=== PATIENT | female | born 1995 | race Caucasian/White ===

== ENCOUNTER 2021-03-27 11:52 | Emergency (ER) | payer MEDICAID, OTHER ==
[~2021-03-27] VITALS: Ht 149.9 cm; Wt 70.3 kg
[2021-03-27 11:53] VITALS: BP 105/62
[2021-03-27] MEDS ORDERED: CEFTRIAXONE 1G VIAL IM ONE (12:30)
[2021-03-27] MEDS ORDERED: AZITHROMYCIN 250 MG TABLET PO ONE (12:30)
[2021-03-27] MEDS ORDERED: METRONIDAZOLE 500 MG TABLET PO ONE (12:30)
[2021-03-27 12:42] LABS: APPEARANCE,URINE Cloudy (CLEAR); BILIRUBIN,URINE Negative (NEGATIVE); COLOR,URINE Yellow (YELLOW); GLUCOSE, URINE (UA) Negative (NEGATIVE); KETONES,URINE Trace mg/dL (NEGATIVE); LEUKOCYTE ESTERASE ,URINE Negative (NEGATIVE); NITRATE,URINE Negative (NEGATIVE); OCCULT BLOOD,URINE Negative (NEGATIVE); PH,URINE 5.5 (5.0-8.0); PROTEIN,URINE Trace mg/dL (NEGATIVE)
[2021-03-27 12:43] LABS: BASOPHILS % (AUTO) 0.3 % (0.0-5.0); EOSINOPHILS % (AUTO) 1.9 % (0.0-8.0); HEMATOCRIT 35.6 % (36-48); LYMPHOCYTES % (AUTO) 14.7 % (21.0-51.0); MEAN CORPUSCULAR HEMOGLOBIN 26.4 pg (27.0-33.0); MEAN CORPUSCULAR HGB CONC 32.3 g/dL (32.0-36.0); MEAN CORPUSCULAR VOLUME 81.8 fL (79-99); MONOCYTES % (AUTO) 4.8 % (3.0-13.0); PLATELET COUNT (AUTO) 379 K/uL (130-400); RED BLOOD CELL COUNT(AUTO) 4.35 MIL/uL (4.00-5.50); RED CELL DISTRIBUTION WIDTH 13.8 % (11.0-15.5); WHITE BLOOD COUNT (AUTO) 6.8 K/uL (4.8-10.8)
[2021-03-27 12:55] LABS: RBC,URINE 0-1 /HPF (0-1); WBC,URINE 0-1 /HPF (0-1)
[2021-03-27] MEDS ORDERED: LIDOCAINE HCL-MPF 1% 2ML VIAL ONE (12:55)
[2021-03-27 12:56] LABS: CALCIUM OXALATE CRYSTALS,UR Moderate /LPF (None Seen)
[2021-03-27 12:56] LABS: CREATININE 0.8 mg/dL (0.5-1.5); POTASSIUM 3.7 mmol/L (3.5-5.1)
[2021-03-27 12:57] LABS: BACTERIA,URINE Moderate /HPF (None Seen)
[2021-03-27 13:01] LABS: ALBUMIN 3.9 g/dL (3.5-5.0); BILIRUBIN,TOTAL 0.5 mg/dL (0.2-1.0)
[2021-03-27] MEDS ORDERED: DOXY100C5 PO (13:47)
[2021-03-27 13:56] LABS: RAPID PLASMA REAGIN NONREACTIVE (NONREACTIVE)
[2021-03-28 08:15] LABS: HEPATITIS A ANTIBODY IGM Negative (Negative); HEPATITIS B CORE IGM Negative (Negative); HEPATITIS Bs ANTIGEN SCREEN P Negative (Negative)
== END 2021-03-27 13:56 | disposition home or self-care (01) ==
LOC: EDH 11:52 → EEVIPCON 11:52 → EDH 13:56
DX: A54.9 Gonococcal infection, unspecified (principal); Z20.2 Contact with and (suspected) exposure to infections with a predominantly sexual mode of transmission
CPT/HCPCS: 36415; 80053; 80074; 81001; 81025; 85025; 86592; 86701; 87088; 87210; 87390; 87486; 87797; 96372; 99283; J0696; J3490

== ENCOUNTER 2021-05-01 11:29 | Emergency (ER) | payer OTHER ==
[~2021-05-01] VITALS: Ht 149.9 cm; Wt 68.9 kg
[~2021-05-01 11:29] MED LIST: DOXY100C5 PO
[2021-05-01 11:31] VITALS: BP 102/62
== END 2021-05-01 11:46 | disposition left against medical advice (07) ==
LOC: EDH 11:29
DX: R07.89 Other chest pain (principal); Z53.21 Procedure and treatment not carried out due to patient leaving prior to being seen by health care provider
CPT/HCPCS: 93005

== ENCOUNTER 2021-11-13 02:56 | Emergency (ER) | payer MEDICAID ==
[~2021-11-13] VITALS: Ht 149.9 cm; Wt 63.0 kg
[2021-11-13] MEDS ORDERED: HYDROXYZINE 100MG/2ML VIAL IM SCH (03:30)
[2021-11-13] MEDS ORDERED: DiphenhydrAMINE HCL 50 MG/ML VIAL ONE (03:46)
[2021-11-13 04:00] VITALS: BP 124/74
== END 2021-11-13 04:21 | disposition home or self-care (01) ==
LOC: EDH 02:56
DX: F41.1 Generalized anxiety disorder (principal); T43.225A Adverse effect of selective serotonin reuptake inhibitors, initial encounter; Y92.89 Other specified places as the place of occurrence of the external cause
CPT/HCPCS: 99283; 96372; J1200; J3410

== ENCOUNTER 2021-12-09 04:56 | Emergency (ER) | payer MEDICAID ==
[~2021-12-09] VITALS: Ht 149.9 cm; Wt 64.4 kg
[2021-12-09 05:18] VITALS: BP 110/68
[2021-12-09] MEDS ORDERED: HYD25 PO (05:37)
[2021-12-09 05:43] LABS: APPEARANCE,URINE CLEAR (CLEAR); BILIRUBIN,URINE NEGATIVE (NEGATIVE); COLOR,URINE YELLOW (YELLOW); GLUCOSE, URINE (UA) NEGATIVE (NEGATIVE); KETONES,URINE NEGATIVE (NEGATIVE); LEUKOCYTE ESTERASE ,URINE NEGATIVE (NEGATIVE); NITRATE,URINE NEGATIVE (NEGATIVE); OCCULT BLOOD,URINE NEGATIVE (NEGATIVE); PROTEIN,URINE NEGATIVE (NEGATIVE); UROBILINOGEN,URINE 0.2 mg/dL (0.2-1.0)
[2021-12-09 05:45] LABS: HCG,QUALITATIVE URINE NEGATIVE (NEGATIVE)
[2021-12-09 05:49] LABS: AMPHET/METH SCREEN,URINE NEGATIVE (NEGATIVE); BARBITURATE SCREEN, URINE NEGATIVE (NEGATIVE); BENZODIAZEPINES SCREEN,URINE NEGATIVE (NEGATIVE); CANNABINOID SCREEN,URINE NEGATIVE (NEGATIVE); COCAINE SCREEN,URINE NEGATIVE (NEGATIVE); PHENCYCLIDINE SCREEN,URINE NEGATIVE (NEGATIVE)
[2021-12-09] MEDS ORDERED: DIAZEPAM 5 MG/ML 2 ML SYG IM ONE (06:00)
== END 2021-12-09 06:11 | disposition home or self-care (01) ==
LOC: EDH 04:56
DX: F41.9 Anxiety disorder, unspecified (principal); T43.225A Adverse effect of selective serotonin reuptake inhibitors, initial encounter; F17.200 Nicotine dependence, unspecified, uncomplicated; Y92.89 Other specified places as the place of occurrence of the external cause
CPT/HCPCS: 99284; 80305; 81025; 96372; 93005; 81003; J3360

== ENCOUNTER 2022-01-05 04:48 | Emergency (ER) | payer MEDICAID ==
[~2022-01-05] VITALS: Ht 149.9 cm; Wt 62.1 kg
[~2022-01-05 04:48] MED LIST changes: +HYD25 PO
[2022-01-05 05:50] LABS: BASOPHILS % (AUTO) 0.5 % (0.0-5.0); HEMATOCRIT 34.7 % (36-48); LYMPHOCYTES % (AUTO) 28.5 % (21.0-51.0); MEAN CORPUSCULAR HGB CONC 32.9 g/dL (32.0-36.0); MEAN CORPUSCULAR VOLUME 79.2 fL (79-99); MONOCYTES % (AUTO) 7.9 % (3.0-13.0); NEUTROPHILS % (AUTO) 60.8 % (40.0-77.0); PLATELET COUNT (AUTO) 345 K/uL (130-400); RED BLOOD CELL COUNT(AUTO) 4.38 MIL/uL (4.00-5.50); RED CELL DISTRIBUTION WIDTH 14.8 % (11.0-15.5); WHITE BLOOD COUNT (AUTO) 10.4 K/uL (4.8-10.8)
[2022-01-05 06:00] LABS: CREATININE 0.8 mg/dL (0.5-1.5); POTASSIUM 3.5 mmol/L (3.5-5.1)
[2022-01-05 06:01] LABS: APPEARANCE,URINE CLEAR (CLEAR); BILIRUBIN,URINE NEGATIVE (NEGATIVE); GLUCOSE, URINE (UA) NEGATIVE (NEGATIVE); KETONES,URINE NEGATIVE (NEGATIVE); LEUKOCYTE ESTERASE ,URINE NEGATIVE Leu/uL (NEGATIVE); NITRATE,URINE NEGATIVE (NEGATIVE); OCCULT BLOOD,URINE NEGATIVE (NEGATIVE); PH,URINE 5.5 (5.0-8.0); PROTEIN,URINE NEGATIVE (NEGATIVE); UROBILINOGEN,URINE 0.2 mg/dL (0.2-1.0)
[2022-01-05 06:05] LABS: TOTAL PROTEIN, SERUM 8.2 g/dL (6.0-8.3)
[2022-01-05 06:07] VITALS: BP 101/67
[2022-01-05 06:07] LABS: HCG,QUALITATIVE URINE NEGATIVE (NEGATIVE)
[2022-01-05 06:08] LABS: COLOR,URINE LIGHT-YELLOW (YELLOW)
[2022-01-05 06:22] LABS: B-TYPE NATRIURETIC PEPTIDE < 5 pg/mL (0-100)
== END 2022-01-05 06:06 | disposition left against medical advice (07) ==
LOC: EDH 04:48
DX: R07.89 Other chest pain (principal); F41.9 Anxiety disorder, unspecified; F17.210 Nicotine dependence, cigarettes, uncomplicated; Z79.899 Other long term (current) drug therapy
CPT/HCPCS: 36415; 80053; 81003; 81025; 82550; 83880; 84484; 85025; 85378; 93005

== ENCOUNTER 2022-02-01 13:58 | Emergency (ER) | payer MEDICAID ==
[~2022-02-01] VITALS: Ht 149.9 cm; Wt 60.8 kg
[2022-02-01 13:59] VITALS: BP 107/67
[2022-02-01] MEDS ORDERED: ACET-2247 PO (14:12)
[2022-02-01] MEDS ORDERED: CORTSOL AD (14:12)
[2022-02-01] MEDS ORDERED: ACETAMINOPHEN 500 MG TABLET PO ONE (14:30)
== END 2022-02-01 14:26 | disposition home or self-care (01) ==
LOC: EDH 13:58
DX: H92.01 Otalgia, right ear (principal); F41.9 Anxiety disorder, unspecified; Z79.899 Other long term (current) drug therapy
CPT/HCPCS: 99282

== ENCOUNTER 2022-03-10 17:00 | Emergency (ER) | payer MEDICAID ==
[~2022-03-10] VITALS: Ht 149.9 cm; Wt 59.0 kg
[~2022-03-10 17:00] MED LIST changes: +ACET-2247 PO; +CORTSOL AD
[2022-03-10] MEDS ORDERED: PHARMACY COMMUNICATION MISC STA (17:25)
[2022-03-10] MEDS ORDERED: DEXAMETHASONE SOD PHOSPHATE 4 MG/ML 1ML VIAL IV ONE (17:30)
[2022-03-10] MEDS ORDERED: METOCLOPRAMIDE 10 MG/2 ML VIAL IVP ONE (17:30)
[2022-03-10 17:46] LABS: BASOPHILS % (AUTO) 0.3 % (0.0-5.0); EOSINOPHILS % (AUTO) 0.8 % (0.0-8.0); HEMATOCRIT 36.1 % (36-48); MEAN CORPUSCULAR HEMOGLOBIN 25.7 pg (27.0-33.0); MEAN CORPUSCULAR HGB CONC 32.7 g/dL (32.0-36.0); MEAN CORPUSCULAR VOLUME 78.5 fL (79-99); MONOCYTES % (AUTO) 5.2 % (3.0-13.0); NEUTROPHILS % (AUTO) 80.4 % (40.0-77.0); PLATELET COUNT (AUTO) 318 K/uL (130-400); RED CELL DISTRIBUTION WIDTH 14.6 % (11.0-15.5); WHITE BLOOD COUNT (AUTO) 7.8 K/uL (4.8-10.8)
[2022-03-10 17:56] LABS: CREATININE 0.7 mg/dL (0.5-1.5); POTASSIUM 3.7 mmol/L (3.5-5.1)
[2022-03-10] MEDS ORDERED: VALPROIC ACID (AS SODIUM SALT) 500 MG in 0.9%NACL 100ML 100 ML IV SCH (18:00)
[2022-03-10 18:01] LABS: ALBUMIN 3.9 g/dL (3.5-5.0); TOTAL PROTEIN, SERUM 8.2 g/dL (6.0-8.3)
[2022-03-10 19:15] VITALS: BP 106/62
[2022-03-10] MEDS: DiphenhydrAMINE HCL 50 MG/ML VIAL ONE ×2 (19:15→19:20)
[2022-03-10] MEDS ORDERED: CETI1TAB PO (20:31)
== END 2022-03-10 20:49 | disposition home or self-care (01) ==
LOC: EDH 17:00
DX: R51.9 Headache, unspecified (principal); F41.9 Anxiety disorder, unspecified; F43.10 Post-traumatic stress disorder, unspecified; F17.290 Nicotine dependence, other tobacco product, uncomplicated; M26.69 Other specified disorders of temporomandibular joint
CPT/HCPCS: 99284; 70450; 96365; 96375; 80053; 85025; 81025; 36415; 70486; J1100; J1200; J2765

== ENCOUNTER 2022-04-08 23:57 | Emergency (ER) | payer MEDICAID ==
[~2022-04-08] VITALS: Ht 149.9 cm; Wt 56.7 kg
[~2022-04-08 23:57] MED LIST changes: +CETI1TAB PO
[2022-04-09 00:40] LABS: BASOPHILS % (AUTO) 0.4 % (0.0-5.0); EOSINOPHILS % (AUTO) 2.8 % (0.0-8.0); HEMATOCRIT 31.5 % (36-48); LYMPHOCYTES % (AUTO) 38.5 % (21.0-51.0); MEAN CORPUSCULAR HEMOGLOBIN 25.7 pg (27.0-33.0); MEAN CORPUSCULAR VOLUME 77.8 fL (79-99); MONOCYTES % (AUTO) 8.7 % (3.0-13.0); NEUTROPHILS % (AUTO) 49.5 % (40.0-77.0); PLATELET COUNT (AUTO) 342 K/uL (130-400); RED BLOOD CELL COUNT(AUTO) 4.05 MIL/uL (4.00-5.50); RED CELL DISTRIBUTION WIDTH 15.1 % (11.0-15.5); WHITE BLOOD COUNT (AUTO) 8.6 K/uL (4.8-10.8)
[2022-04-09 01:00] LABS: CREATININE 0.7 mg/dL (0.5-1.5); POTASSIUM 4.1 mmol/L (3.5-5.1)
[2022-04-09 01:05] LABS: ALBUMIN 3.6 g/dL (3.5-5.0); TOTAL PROTEIN, SERUM 7.2 g/dL (6.0-8.3)
[2022-04-09 01:51] LABS: INR 1.01 (0.85-1.15)
[2022-04-09 01:52] LABS: PARTIAL THROMBOPLASTIN TIME 35.6 SEC (26.3-35.5)
[2022-04-09 02:26] LABS: BILIRUBIN,URINE NEGATIVE (NEGATIVE); COLOR,URINE COLORLESS (YELLOW); GLUCOSE, URINE (UA) NEGATIVE (NEGATIVE); KETONES,URINE NEGATIVE (NEGATIVE); LEUKOCYTE ESTERASE ,URINE 500 Leu/uL (NEGATIVE); NITRATE,URINE NEGATIVE (NEGATIVE); OCCULT BLOOD,URINE NEGATIVE (NEGATIVE); PH,URINE 5.5 (5.0-8.0); PROTEIN,URINE NEGATIVE (NEGATIVE); UROBILINOGEN,URINE 0.2 mg/dL (0.2-1.0)
[2022-04-09 02:28] LABS: APPEARANCE,URINE SLIGHTLY CLOUDY (CLEAR)
[2022-04-09 02:29] LABS: BACTERIA,URINE RARE /HPF (None Seen); MUCUS,URINE RARE LPF (None Seen); SQUAMOUS EPITHELIAL CELL,UR MOD /HPF (0-2)
[2022-04-09] MEDS ORDERED: OMEP40CA21 PO (03:20)
[2022-04-09 03:25] VITALS: BP 115/68
== END 2022-04-09 03:36 | disposition home or self-care (01) ==
LOC: EDH 23:57
DX: R07.89 Other chest pain (principal); I25.2 Old myocardial infarction; F17.200 Nicotine dependence, unspecified, uncomplicated; Z88.6 Allergy status to analgesic agent; Z79.899 Other long term (current) drug therapy
CPT/HCPCS: 36415; 71045; 80053; 81001; 84484; 84703; 85025; 85378; 85610; 85730; 87088; 93005

== ENCOUNTER 2022-04-30 12:25 | Emergency (ER) | payer MEDICAID ==
[~2022-04-30] VITALS: Ht 149.9 cm; Wt 59.0 kg
[~2022-04-30 12:25] MED LIST changes: -CORTSOL AD; -DOXY100C5 PO; -HYD25 PO; +OMEP40CA21 PO
[2022-04-30 13:41] LABS: BASOPHILS % (AUTO) 0.6 % (0.0-5.0); EOSINOPHILS % (AUTO) 1.9 % (0.0-8.0); HEMATOCRIT 33.3 % (36-48); LYMPHOCYTES % (AUTO) 33.3 % (21.0-51.0); MEAN CORPUSCULAR HEMOGLOBIN 25.5 pg (27.0-33.0); MEAN CORPUSCULAR HGB CONC 32.1 g/dL (32.0-36.0); MEAN CORPUSCULAR VOLUME 79.5 fL (79-99); MONOCYTES % (AUTO) 5.3 % (3.0-13.0); NEUTROPHILS % (AUTO) 58.5 % (40.0-77.0); PLATELET COUNT (AUTO) 402 K/uL (130-400); RED BLOOD CELL COUNT(AUTO) 4.19 MIL/uL (4.00-5.50)
[2022-04-30 13:50] LABS: APPEARANCE,URINE CLEAR (CLEAR); BILIRUBIN,URINE NEGATIVE (NEGATIVE); COLOR,URINE LIGHT-YELLOW (YELLOW); GLUCOSE, URINE (UA) NEGATIVE (NEGATIVE); HCG,QUALITATIVE URINE NEGATIVE (NEGATIVE); KETONES,URINE NEGATIVE (NEGATIVE); LEUKOCYTE ESTERASE ,URINE NEGATIVE Leu/uL (NEGATIVE); NITRATE,URINE NEGATIVE (NEGATIVE); OCCULT BLOOD,URINE NEGATIVE (NEGATIVE); PROTEIN,URINE NEGATIVE (NEGATIVE); UROBILINOGEN,URINE 0.2 mg/dL (0.2-1.0)
[2022-04-30 13:59] LABS: CREATININE 0.7 mg/dL (0.5-1.5); POTASSIUM 4.1 mmol/L (3.5-5.1)
[2022-04-30 14:06] LABS: TOTAL PROTEIN, SERUM 8.4 g/dL (6.0-8.3)
[2022-04-30] MEDS ORDERED: FAMOTIDINE 20MG VIAL IV ONE (14:30)
[2022-04-30] MEDS ORDERED: 0.9%NACL 1000ML 1,000 ML IV ONE (14:30)
[2022-04-30] MEDS ORDERED: LIDOCAINE HCL 2% VISCOUS 15 ML UDCUP PO ONE (16:00)
[2022-04-30] MEDS ORDERED: MAG/ALUM/SIMETH 30 ML UDCUP PO ONE (16:00)
[2022-04-30 16:15] VITALS: BP 116/68
== END 2022-04-30 16:26 | disposition home or self-care (01) ==
LOC: EDH 12:25
DX: R55 Syncope and collapse (principal); Z20.822 Contact with and (suspected) exposure to COVID-19; K64.4 Residual hemorrhoidal skin tags; K21.9 Gastro-esophageal reflux disease without esophagitis; Z88.8 Allergy status to other drugs, medicaments and biological substances; Z79.899 Other long term (current) drug therapy
CPT/HCPCS: 99285; 96374; 71045; 87635; 96361; 82270; 84484; 80053; 85025; 87804 ×2; 81003; 81025; 36415; 93005; C9803; J7030; S0028; J3490

== ENCOUNTER 2022-05-04 01:04 | Emergency (ER) | payer MEDICAID ==
[~2022-05-04] VITALS: Ht 152.4 cm; Wt 59.0 kg
[2022-05-04 02:38] LABS: BASOPHILS % (AUTO) 0.4 % (0.0-5.0); EOSINOPHILS % (AUTO) 1.6 % (0.0-8.0); HEMATOCRIT 36.1 % (36-48); LYMPHOCYTES % (AUTO) 27.9 % (21.0-51.0); MEAN CORPUSCULAR HEMOGLOBIN 25.5 pg (27.0-33.0); MEAN CORPUSCULAR HGB CONC 32.4 g/dL (32.0-36.0); MEAN CORPUSCULAR VOLUME 78.6 fL (79-99); MONOCYTES % (AUTO) 6.2 % (3.0-13.0); NEUTROPHILS % (AUTO) 63.6 % (40.0-77.0); PLATELET COUNT (AUTO) 509 K/uL (130-400); RED BLOOD CELL COUNT(AUTO) 4.59 MIL/uL (4.00-5.50); RED CELL DISTRIBUTION WIDTH 16.7 % (11.0-15.5); WHITE BLOOD COUNT (AUTO) 11.3 K/uL (4.8-10.8)
[2022-05-04 02:49] LABS: APPEARANCE,URINE CLEAR (CLEAR); BILIRUBIN,URINE NEGATIVE (NEGATIVE); COLOR,URINE COLORLESS (YELLOW); GLUCOSE, URINE (UA) NEGATIVE (NEGATIVE); KETONES,URINE NEGATIVE (NEGATIVE); LEUKOCYTE ESTERASE ,URINE 75 Leu/uL (NEGATIVE); NITRATE,URINE NEGATIVE (NEGATIVE); OCCULT BLOOD,URINE NEGATIVE (NEGATIVE); PH,URINE 6.5 (5.0-8.0); PROTEIN,URINE NEGATIVE (NEGATIVE); UROBILINOGEN,URINE 0.2 mg/dL (0.2-1.0)
[2022-05-04 02:51] LABS: HCG,QUALITATIVE URINE NEGATIVE (NEGATIVE)
[2022-05-04 02:53] LABS: RBC,URINE 0-1 /HPF (0-1); SQUAMOUS EPITHELIAL CELL,UR RARE /HPF (0-2); WBC,URINE 0-1 /HPF (0-1)
[2022-05-04 02:55] LABS: CREATININE 0.7 mg/dL (0.5-1.5); POTASSIUM 3.7 mmol/L (3.5-5.1)
[2022-05-04 03:00] LABS: ALBUMIN 4.2 g/dL (3.5-5.0)
[2022-05-04 04:06] VITALS: BP 98/51
== END 2022-05-04 04:33 | disposition home or self-care (01) ==
LOC: EDH 01:04
DX: I95.9 Hypotension, unspecified (principal); E27.1 Primary adrenocortical insufficiency; Z98.890 Other specified postprocedural states; Z88.8 Allergy status to other drugs, medicaments and biological substances
CPT/HCPCS: 36415; 80053; 81001; 81025; 85025; 87088; 93005

== ENCOUNTER 2022-08-18 15:51 | Emergency (ER) | payer MEDICAID ==
[~2022-08-18] VITALS: Ht 149.9 cm; Wt 65.8 kg
[2022-08-18] MEDS ORDERED: IPRATROPIUM/ALBUTEROL SULFATE 3 ML SOLUTION IH ONE ×2 (16:47→17:00)
[2022-08-18] MEDS ORDERED: ONDANSETRON 4MG INJ IVP ONE (17:00)
[2022-08-18] MEDS ORDERED: DEXAMETHASONE SOD PHOSPHATE 4 MG/ML 1ML VIAL IVP ONE (17:00)
[2022-08-18] MEDS ORDERED: 0.9%NACL 1000ML 1,000 ML IV ONE (17:00)
[2022-08-18 17:39] LABS: BASOPHILS % (AUTO) 0.2 % (0.0-5.0); EOSINOPHILS % (AUTO) 0.1 % (0.0-8.0); LYMPHOCYTES % (AUTO) 6.4 % (21.0-51.0); MEAN CORPUSCULAR HEMOGLOBIN 26.7 pg (27.0-33.0); MEAN CORPUSCULAR HGB CONC 33.3 g/dL (32.0-36.0); MEAN CORPUSCULAR VOLUME 80.1 fL (79-99); MONOCYTES % (AUTO) 4.3 % (3.0-13.0); NEUTROPHILS % (AUTO) 88.7 % (40.0-77.0); PLATELET COUNT (AUTO) 289 K/uL (130-400); RED BLOOD CELL COUNT(AUTO) 4.87 MIL/uL (4.00-5.50); RED CELL DISTRIBUTION WIDTH 14.5 % (11.0-15.5); WHITE BLOOD COUNT (AUTO) 14.6 K/uL (4.8-10.8)
[2022-08-18 17:55] LABS: CREATININE 0.7 mg/dL (0.5-1.5); POTASSIUM 3.5 mmol/L (3.5-5.1)
[2022-08-18] MEDS ORDERED: ACETAMINOPHEN 500 MG TABLET PO ONE (18:00)
[2022-08-18 18:05] LABS: ALBUMIN 4.4 g/dL (3.5-5.0); TOTAL PROTEIN, SERUM 8.8 g/dL (6.0-8.3)
[2022-08-18] MEDS ORDERED: AMOX500C2 PO (18:49)
[2022-08-18] MEDS ORDERED: CEFTRIAXONE 1G VIAL IV ONE (19:00)
[2022-08-18 19:38] VITALS: BP 114/63
== END 2022-08-18 19:39 | disposition home or self-care (01) ==
LOC: EDH 15:51
DX: J02.0 Streptococcal pharyngitis (principal); K21.9 Gastro-esophageal reflux disease without esophagitis; Z20.822 Contact with and (suspected) exposure to COVID-19
CPT/HCPCS: 99284; 96374; 71045; 96361; 96375; 87635; 80053; 84702; 85025; 87880; 87804 ×2; 83605; 36415; 94640; J1100; C9803; J7030; J0696; J2405

== ENCOUNTER 2022-09-18 03:30 | Emergency (ER) | payer MEDICAID ==
[~2022-09-18] VITALS: Ht 149.9 cm; Wt 66.2 kg
[~2022-09-18 03:30] MED LIST changes: +AMOX500C2 PO
[2022-09-18] MEDS ORDERED: IPRATROPIUM/ALBUTEROL SULFATE 3 ML SOLUTION IH ONE (06:00)
[2022-09-18] MEDS ORDERED: SOLU-MEDROL 125MG VIAL IVP ONE (06:00)
[2022-09-18 06:33] LABS: BASOPHILS % (AUTO) 0.4 % (0.0-5.0); EOSINOPHILS % (AUTO) 4.2 % (0.0-8.0); HEMATOCRIT 35.5 % (36-48); LYMPHOCYTES % (AUTO) 35.5 % (21.0-51.0); MEAN CORPUSCULAR HEMOGLOBIN 27.7 pg (27.0-33.0); MEAN CORPUSCULAR HGB CONC 33.8 g/dL (32.0-36.0); MONOCYTES % (AUTO) 8.9 % (3.0-13.0); NEUTROPHILS % (AUTO) 50.9 % (40.0-77.0); PLATELET COUNT (AUTO) 299 K/uL (130-400); RED BLOOD CELL COUNT(AUTO) 4.33 MIL/uL (4.00-5.50); RED CELL DISTRIBUTION WIDTH 14.6 % (11.0-15.5); WHITE BLOOD COUNT (AUTO) 7.7 K/uL (4.8-10.8)
[2022-09-18] MEDS ORDERED: SOLU-MEDROL 40MG VIAL ONE (06:38)
[2022-09-18 06:46] LABS: CREATININE 0.7 mg/dL (0.5-1.5); POTASSIUM 3.8 mmol/L (3.5-5.1); TOTAL PROTEIN, SERUM 7.9 g/dL (6.0-8.3)
[2022-09-18 07:21] LABS: B-TYPE NATRIURETIC PEPTIDE < 5 pg/mL (0-100)
[2022-09-18] MEDS ORDERED: BENZ-39 PO (08:36)
[2022-09-18 08:55] VITALS: BP 112/68
[2022-09-18] MEDS ORDERED: ACETAMINOPHEN 500 MG TABLET PO ONE (09:00)
[2022-09-18] MEDS ORDERED: BENZONATATE 100 MG CAPSULE PO SCH (09:00)
== END 2022-09-18 08:59 | disposition home or self-care (01) ==
LOC: EDH 03:30
DX: J20.8 Acute bronchitis due to other specified organisms (principal); F17.200 Nicotine dependence, unspecified, uncomplicated; Z79.52 Long term (current) use of systemic steroids; Z79.899 Other long term (current) drug therapy; Z88.6 Allergy status to analgesic agent
CPT/HCPCS: 99284; 96374; 71045; 80053; 83880; 84703; 85025; 36415; 94640; J2920

== ENCOUNTER 2022-10-12 04:29 | Emergency (ER) | payer MEDICAID ==
[~2022-10-12] VITALS: Ht 149.9 cm; Wt 67.6 kg
[~2022-10-12 04:29] MED LIST changes: +BENZ-39 PO
[2022-10-12] MEDS ORDERED: SERT100T PO (05:50)
[2022-10-12 06:05] VITALS: BP 107/49
== END 2022-10-12 06:19 | disposition home or self-care (01) ==
LOC: EDH 04:29
DX: R07.89 Other chest pain (principal); F41.1 Generalized anxiety disorder; F41.9 Anxiety disorder, unspecified; I10 Essential (primary) hypertension; F17.200 Nicotine dependence, unspecified, uncomplicated; Z59.00 Homelessness unspecified; Z79.899 Other long term (current) drug therapy; Z88.6 Allergy status to analgesic agent
CPT/HCPCS: 93005

== ENCOUNTER 2023-04-07 13:09 | Emergency (ER) | payer MEDICAID, OTHER ==
[~2023-04-07] VITALS: Ht 149.9 cm; Wt 70.3 kg
[~2023-04-07 13:09] MED LIST changes: +SERT100T PO
[2023-04-07 13:54] VITALS: BP 124/67; PULSE 103; RESP 16; O2SAT 100
[2023-04-07 14:29] LABS: BASOPHILS # (AUTO) 0.02 K/uL (0.00-0.20); BASOPHILS % (AUTO) 0.3 % (0.0-5.0); EOSINOPHILS # (AUTO) 0.08 K/uL (0.00-0.70); EOSINOPHILS % (AUTO) 1.2 % (0.0-8.0); IMMATURE GRANULOCYTE ABSOLUTE 0.02 K/uL (0-1); LYMPHOCYTES # (AUTO) 0.4 K/uL (1.0-4.8); LYMPHOCYTES % (AUTO) 6.1 % (21.0-51.0); MEAN CORPUSCULAR HEMOGLOBIN 28.4 pg (27.0-33.0); MEAN CORPUSCULAR VOLUME 83.5 fL (79-99); MONOCYTES # (AUTO) 0.6 K/uL (0.1-1.0); NEUTROPHILS # (AUTO) 5.4 K/uL (1.8-7.7); NEUTROPHILS % (AUTO) 83.1 % (40.0-77.0); PLATELET COUNT (AUTO) 294 K/uL (130-400); RED BLOOD CELL COUNT(AUTO) 4.19 MIL/uL (4.00-5.50); RED CELL DISTRIBUTION WIDTH 13.7 % (11.0-15.5); WHITE BLOOD COUNT (AUTO) 6.6 K/uL (4.8-10.8)
[2023-04-07] MEDS ORDERED: ACETAMINOPHEN 500 MG TABLET PO ONE (14:30)
[2023-04-07] MEDS ORDERED: HYDROCODONE/ACETAMINOPHEN 5/325 MG TAB PO ONE (14:30)
[2023-04-07 14:38] LABS: CREATININE 0.8 mg/dL (0.5-1.5); POTASSIUM 3.8 mmol/L (3.5-5.1)
[2023-04-07 14:43] LABS: BILIRUBIN,TOTAL 0.3 mg/dL (0.2-1.0); TOTAL PROTEIN, SERUM 8.3 g/dL (6.0-8.3)
[2023-04-07 16:19] LABS: RAPID GROUP A STREP negative (NEGATIVE)
[2023-04-07 16:31] LABS: SARS-CoV-2, RNA, NAAT NEGATIVE SARS CoV-2 (NEGATIVE)
[2023-04-07 16:36] LABS: INFLUENZA TYPE A Negative For Type A (NEGATIVE); INFLUENZA TYPE B Negative For Type B (NEGATIVE)
[2023-04-07] MEDS ORDERED: BROM118S48 PO (16:48)
[2023-04-07] MEDS ORDERED: AZIT250T PO (16:52)
== END 2023-04-07 17:21 | disposition home or self-care (01) ==
LOC: EDH 13:09
DX: J20.2 Acute bronchitis due to streptococcus (principal); M79.10 Myalgia, unspecified site; I10 Essential (primary) hypertension; E78.00 Pure hypercholesterolemia, unspecified; F17.200 Nicotine dependence, unspecified, uncomplicated; Z20.822 Contact with and (suspected) exposure to COVID-19; Z79.899 Other long term (current) drug therapy; Z88.8 Allergy status to other drugs, medicaments and biological substances
CPT/HCPCS: 99283; 87635; 80053; 85025; 87880; 87804 ×2; 36415; C9803

== ENCOUNTER 2023-07-18 10:43 | Emergency (ER) | payer OTHER ==
[~2023-07-18] VITALS: Ht 149.9 cm; Wt 68.0 kg
[~2023-07-18 10:43] MED LIST changes: +AZIT250T PO; +D-ME118S47 PO
[2023-07-18 11:09] VITALS: BP 118/66; PULSE 88; RESP 18
== END 2023-07-18 12:20 | disposition left against medical advice (07) ==
LOC: EDH 10:43
DX: R51.9 Headache, unspecified (principal); Z53.21 Procedure and treatment not carried out due to patient leaving prior to being seen by health care provider
CPT/HCPCS: 99281

== ENCOUNTER 2023-07-19 23:16 | Emergency (ER) | payer OTHER ==
[~2023-07-19] VITALS: Ht 149.9 cm; Wt 70.3 kg
[2023-07-19 23:47] LABS: APPEARANCE,URINE CLEAR (CLEAR); BILIRUBIN,URINE NEGATIVE (NEGATIVE); COLOR,URINE LIGHT-YELLOW (YELLOW); GLUCOSE, URINE (UA) NEGATIVE (NEGATIVE); KETONES,URINE NEGATIVE (NEGATIVE); LEUKOCYTE ESTERASE ,URINE 75 Leu/uL (NEGATIVE); NITRATE,URINE NEGATIVE (NEGATIVE); OCCULT BLOOD,URINE NEGATIVE (NEGATIVE); PROTEIN,URINE 10 mg/dL (NEGATIVE); UROBILINOGEN,URINE 0.2 mg/dL (0.2-1.0)
[2023-07-19 23:48] LABS: ADD UA MICROSCOPIC YES
[2023-07-19 23:49] LABS: BACTERIA,URINE FEW /HPF (None Seen); HCG,QUALITATIVE URINE NEGATIVE (NEGATIVE); MUCUS,URINE RARE LPF (None Seen); SQUAMOUS EPITHELIAL CELL,UR FEW /HPF (0-2)
[2023-07-19 23:54] LABS: RAPID GROUP A STREP negative (NEGATIVE)
[2023-07-20] LABS: SARS-CoV-2, RNA, NAAT NEGATIVE SARS CoV-2 (NEGATIVE)
[2023-07-20 00:04] LABS: INFLUENZA TYPE A Negative For Type A (NEGATIVE); INFLUENZA TYPE B Negative For Type B (NEGATIVE)
[2023-07-20 00:48] LABS: CREATININE 0.7 mg/dL (0.5-1.0); POTASSIUM 3.5 mmol/L (3.5-5.1)
[2023-07-20 00:52] LABS: ALBUMIN 3.6 g/dL (3.5-5.0); BILIRUBIN,TOTAL 0.1 mg/dL (0.2-1.0); TOTAL PROTEIN, SERUM 7.5 g/dL (6.0-8.3)
[2023-07-20 01:00] LABS: BASOPHILS # (AUTO) 0.04 K/uL (0.00-0.20); BASOPHILS % (AUTO) 0.6 % (0.0-5.0); EOSINOPHILS # (AUTO) 0.15 K/uL (0.00-0.70); EOSINOPHILS % (AUTO) 2.3 % (0.0-8.0); HEMATOCRIT 33.6 % (36-48); IMMATURE GRANULOCYTE ABSOLUTE 0.01 K/uL (0-1); LYMPHOCYTES # (AUTO) 2.7 K/uL (1.0-4.8); LYMPHOCYTES % (AUTO) 40.4 % (21.0-51.0); MEAN CORPUSCULAR HEMOGLOBIN 28.3 pg (27.0-33.0); MEAN CORPUSCULAR HGB CONC 33.9 g/dL (32.0-36.0); MEAN CORPUSCULAR VOLUME 83.4 fL (79-99); MONOCYTES # (AUTO) 0.6 K/uL (0.1-1.0); MONOCYTES % (AUTO) 8.9 % (3.0-13.0); NEUTROPHILS # (AUTO) 3.2 K/uL (1.8-7.7); NEUTROPHILS % (AUTO) 47.6 % (40.0-77.0); PLATELET COUNT (AUTO) 347 K/uL (130-400); RED BLOOD CELL COUNT(AUTO) 4.03 MIL/uL (4.00-5.50); RED CELL DISTRIBUTION WIDTH 13.8 % (11.0-15.5); WHITE BLOOD COUNT (AUTO) 6.6 K/uL (4.8-10.8)
[2023-07-20 02:39] VITALS: BP 121/54; PULSE 62; RESP 20; O2SAT 97
== END 2023-07-20 03:25 | disposition home or self-care (01) ==
LOC: EDH 23:16
DX: G44.209 Tension-type headache, unspecified, not intractable (principal); I10 Essential (primary) hypertension; F17.200 Nicotine dependence, unspecified, uncomplicated; F41.9 Anxiety disorder, unspecified; F32.A Depression, unspecified; Z20.822 Contact with and (suspected) exposure to COVID-19; Z79.899 Other long term (current) drug therapy; Z88.6 Allergy status to analgesic agent; Z88.8 Allergy status to other drugs, medicaments and biological substances; Z98.890 Other specified postprocedural states
CPT/HCPCS: 36415; 70450; 71045; 80053; 81001; 81025; 84484; 85025; 86850; 86900; 86901; 87088; 87635; 87804; 87880; 93005

== ENCOUNTER → 2023-08-17 | Emergency (ER) | payer OTHER ==
[~2023-08-17] VITALS: Ht 149.9 cm; Wt 68.0 kg
[~2023-08-17] MED LIST changes: -ACET-2247 PO; -AMOX500C2 PO; -AZIT250T PO; -BENZ-39 PO; -D-ME118S47 PO; +DOXY-252 PO; -OMEP40CA21 PO
[2023-08-17 16:23] VITALS: BP 131/78; PULSE 88; RESP 14
== END ==
LOC: EDH 16:08
DX: A49.02 Methicillin resistant Staphylococcus aureus infection, unspecified site (principal); Z53.21 Procedure and treatment not carried out due to patient leaving prior to being seen by health care provider
CPT/HCPCS: 99281

== ENCOUNTER 2023-08-25 17:32 | Emergency (ER) | payer MEDICAID, OTHER ==
[~2023-08-25] VITALS: Ht 149.9 cm; Wt 70.3 kg
[2023-08-25 18:25] LABS: APPEARANCE,URINE CLOUDY (CLEAR); BILIRUBIN,URINE NEGATIVE (NEGATIVE); COLOR,URINE LIGHT-YELLOW (YELLOW); GLUCOSE, URINE (UA) NEGATIVE (NEGATIVE); KETONES,URINE NEGATIVE (NEGATIVE); LEUKOCYTE ESTERASE ,URINE 500 Leu/uL (NEGATIVE); NITRATE,URINE NEGATIVE (NEGATIVE); OCCULT BLOOD,URINE NEGATIVE (NEGATIVE); PROTEIN,URINE NEGATIVE (NEGATIVE); UROBILINOGEN,URINE 0.2 mg/dL (0.2-1.0)
[2023-08-25 18:26] LABS: ADD UA MICROSCOPIC YES
[2023-08-25 18:27] LABS: HCG,QUALITATIVE URINE NEGATIVE (NEGATIVE)
[2023-08-25 18:34] LABS: BACTERIA,URINE Moderate /HPF (None Seen); SQUAMOUS EPITHELIAL CELL,UR Moderate /HPF (0-2)
[2023-08-25 20:00] LABS: BASOPHILS # (AUTO) 0.03 K/uL (0.00-0.20); BASOPHILS % (AUTO) 0.4 % (0.0-5.0); EOSINOPHILS # (AUTO) 0.11 K/uL (0.00-0.70); EOSINOPHILS % (AUTO) 1.4 % (0.0-8.0); HEMATOCRIT 36.5 % (36-48); IMMATURE GRANULOCYTE ABSOLUTE 0.02 K/uL (0-1); LYMPHOCYTES # (AUTO) 2.5 K/uL (1.0-4.8); LYMPHOCYTES % (AUTO) 31.9 % (21.0-51.0); MEAN CORPUSCULAR HEMOGLOBIN 27.6 pg (27.0-33.0); MEAN CORPUSCULAR HGB CONC 32.9 g/dL (32.0-36.0); MEAN CORPUSCULAR VOLUME 83.9 fL (79-99); MONOCYTES # (AUTO) 0.7 K/uL (0.1-1.0); MONOCYTES % (AUTO) 8.9 % (3.0-13.0); NEUTROPHILS # (AUTO) 4.4 K/uL (1.8-7.7); NEUTROPHILS % (AUTO) 57.1 % (40.0-77.0); PLATELET COUNT (AUTO) 383 K/uL (130-400); RED BLOOD CELL COUNT(AUTO) 4.35 MIL/uL (4.00-5.50); RED CELL DISTRIBUTION WIDTH 13.8 % (11.0-15.5); WHITE BLOOD COUNT (AUTO) 7.7 K/uL (4.8-10.8)
[2023-08-25 20:06] LABS: CREATININE 0.9 mg/dL (0.5-1.0); POTASSIUM 3.3 mmol/L (3.5-5.1)
[2023-08-25 20:11] LABS: ALBUMIN 4.1 g/dL (3.5-5.0); BILIRUBIN,TOTAL 0.3 mg/dL (0.2-1.0); TOTAL PROTEIN, SERUM 8.3 g/dL (6.0-8.3)
[2023-08-25 22:17] VITALS: BP 109/68; PULSE 84; RESP 16
[2023-08-25] MEDS: ONDANSETRON 4MG INJ IVP ONE (22:32)
[2023-08-25] MEDS: POTASSIUM BICARB/CIT AC 25 MEQ TABLET.EFF PO ONE (22:32)
== END 2023-08-25 23:05 | disposition home or self-care (01) ==
LOC: EDH 17:32
DX: L73.9 Follicular disorder, unspecified (principal); R11.0 Nausea; A49.02 Methicillin resistant Staphylococcus aureus infection, unspecified site; F41.9 Anxiety disorder, unspecified; F32.A Depression, unspecified; I10 Essential (primary) hypertension; F17.200 Nicotine dependence, unspecified, uncomplicated; Z79.899 Other long term (current) drug therapy; Z88.6 Allergy status to analgesic agent
CPT/HCPCS: 99284; 96374; 80053; 83690; 85025; 87088; 81001; 81025; 36415; J2405

== ENCOUNTER 2023-09-22 15:15 | Emergency (ER) | payer OTHER ==
[~2023-09-22] VITALS: Ht 149.9 cm; Wt 68.5 kg
[2023-09-22 17:01] LABS: BASOPHILS # (AUTO) 0.04 K/uL (0.00-0.20); BASOPHILS % (AUTO) 0.6 % (0.0-5.0); EOSINOPHILS # (AUTO) 0.09 K/uL (0.00-0.70); EOSINOPHILS % (AUTO) 1.4 % (0.0-8.0); HEMATOCRIT 37.8 % (36-48); IMMATURE GRANULOCYTE ABSOLUTE 0.01 K/uL (0-1); LYMPHOCYTES # (AUTO) 1.7 K/uL (1.0-4.8); LYMPHOCYTES % (AUTO) 24.8 % (21.0-51.0); MEAN CORPUSCULAR HEMOGLOBIN 27.4 pg (27.0-33.0); MEAN CORPUSCULAR HGB CONC 33.9 g/dL (32.0-36.0); MEAN CORPUSCULAR VOLUME 80.8 fL (79-99); MONOCYTES # (AUTO) 0.6 K/uL (0.1-1.0); MONOCYTES % (AUTO) 8.3 % (3.0-13.0); NEUTROPHILS # (AUTO) 4.3 K/uL (1.8-7.7); NEUTROPHILS % (AUTO) 64.7 % (40.0-77.0); PLATELET COUNT (AUTO) 356 K/uL (130-400); RED BLOOD CELL COUNT(AUTO) 4.68 MIL/uL (4.00-5.50); RED CELL DISTRIBUTION WIDTH 13.5 % (11.0-15.5); WHITE BLOOD COUNT (AUTO) 6.7 K/uL (4.8-10.8)
[2023-09-22 17:14] LABS: CREATININE 0.8 mg/dL (0.5-1.0); POTASSIUM 3.9 mmol/L (3.5-5.1)
[2023-09-22 17:18] LABS: ALBUMIN 4.3 g/dL (3.5-5.0); BILIRUBIN,TOTAL 0.3 mg/dL (0.2-1.0); TOTAL PROTEIN, SERUM 8.8 g/dL (6.0-8.3)
[2023-09-22 17:28] LABS: APPEARANCE,URINE CLEAR (CLEAR); BILIRUBIN,URINE NEGATIVE (NEGATIVE); COLOR,URINE COLORLESS (YELLOW); GLUCOSE, URINE (UA) NEGATIVE (NEGATIVE); KETONES,URINE NEGATIVE (NEGATIVE); LEUKOCYTE ESTERASE ,URINE NEGATIVE Leu/uL (NEGATIVE); NITRATE,URINE NEGATIVE (NEGATIVE); OCCULT BLOOD,URINE NEGATIVE (NEGATIVE); PH,URINE 5.5 (5.0-8.0); PROTEIN,URINE NEGATIVE (NEGATIVE); UROBILINOGEN,URINE 0.2 mg/dL (0.2-1.0)
[2023-09-22 17:31] LABS: HCG,QUALITATIVE URINE NEGATIVE (NEGATIVE)
[2023-09-22 17:32] LABS: ADD UA MICROSCOPIC NO
[2023-09-22] MEDS ORDERED: PANT40TA55 PO (19:29)
[2023-09-22 20:00] VITALS: BP 100/68; PULSE 85; RESP 16; O2SAT 98
== END 2023-09-22 20:08 | disposition home or self-care (01) ==
LOC: EDH 15:15
DX: R10.11 Right upper quadrant pain (principal); I10 Essential (primary) hypertension; F41.9 Anxiety disorder, unspecified; F32.A Depression, unspecified; Z79.899 Other long term (current) drug therapy; Z98.890 Other specified postprocedural states; Z88.6 Allergy status to analgesic agent; Z88.8 Allergy status to other drugs, medicaments and biological substances
CPT/HCPCS: 36415; 80053; 81003; 81025; 83690; 85025

== ENCOUNTER 2023-12-08 18:51 | Emergency (ER) | payer MEDICAID ==
[~2023-12-08] VITALS: Ht 149.9 cm; Wt 70.8 kg
[~2023-12-08 18:51] MED LIST changes: +PANT40TA55 PO
[2023-12-08] MEDS ORDERED: DIPH50 PO (19:34)
[2023-12-08 19:41] LABS: APPEARANCE,URINE CLEAR (CLEAR); BILIRUBIN,URINE NEGATIVE (NEGATIVE); COLOR,URINE COLORLESS (YELLOW); GLUCOSE, URINE (UA) NEGATIVE (NEGATIVE); KETONES,URINE NEGATIVE (NEGATIVE); LEUKOCYTE ESTERASE ,URINE 25 Leu/uL (NEGATIVE); NITRATE,URINE NEGATIVE (NEGATIVE); PH,URINE 5.5 (5.0-8.0); PROTEIN,URINE NEGATIVE (NEGATIVE); UROBILINOGEN,URINE 0.2 mg/dL (0.2-1.0)
[2023-12-08 19:43] LABS: HCG,QUALITATIVE URINE NEGATIVE (NEGATIVE)
[2023-12-08 19:44] LABS: ADD UA MICROSCOPIC YES
[2023-12-08] MEDS: FAMOTIDINE 20MG TAB PO ONE (19:58)
[2023-12-08] MEDS: dexaMETHasone SOD PHOSPHATE 4 MG/ML 1ML VIAL IM ONE (19:58)
[2023-12-08] MEDS: DiphenhydrAMINE HCL 25 MG CAPSULE PO ONE (19:58)
[2023-12-08 20:03] LABS: BACTERIA,URINE RARE /HPF (None Seen); SQUAMOUS EPITHELIAL CELL,UR FEW /HPF (0-2)
[2023-12-08 20:07] VITALS: BP 110/64; PULSE 85; RESP 18; TEMP 98.2
== END 2023-12-08 20:32 | disposition home or self-care (01) ==
LOC: EDH 18:51
DX: T78.1XXA Other adverse food reactions, not elsewhere classified, initial encounter (principal); K21.9 Gastro-esophageal reflux disease without esophagitis; F32.A Depression, unspecified; F17.200 Nicotine dependence, unspecified, uncomplicated; Z79.899 Other long term (current) drug therapy; Z88.6 Allergy status to analgesic agent; X58.XXXA Exposure to other specified factors, initial encounter
CPT/HCPCS: 99283; 87086 ×2; 87186; 81001; 81025; 96372; J1100; Q0163

== ENCOUNTER 2023-12-24 21:31 | Emergency (ER) | payer MEDICAID ==
[~2023-12-24] VITALS: Ht 149.9 cm; Wt 72.1 kg
[~2023-12-24 21:31] MED LIST changes: +DIPH50 PO
[2023-12-24 22:00] LABS: RAPID GROUP A STREP negative (NEGATIVE)
[2023-12-24] MEDS: acetaMINOPHEN 325 MG TAB PO ONE (22:00)
[2023-12-24 22:10] LABS: INFLUENZA TYPE A Negative For Type A (NEGATIVE); INFLUENZA TYPE B Negative For Type B (NEGATIVE)
[2023-12-24 22:16] LABS: SARS-CoV-2, RNA, NAAT POSITIVE SARS CoV-2 (NEGATIVE)
[2023-12-24 22:40] LABS: BASOPHILS # (AUTO) 0.04 K/uL (0.00-0.20); BASOPHILS % (AUTO) 0.5 % (0.0-5.0); EOSINOPHILS # (AUTO) 0.12 K/uL (0.00-0.70); EOSINOPHILS % (AUTO) 1.6 % (0.0-8.0); HEMATOCRIT 35.6 % (36-48); IMMATURE GRANULOCYTE ABSOLUTE 0.01 K/uL (0-1); LYMPHOCYTES # (AUTO) 2.2 K/uL (1.0-4.8); LYMPHOCYTES % (AUTO) 29.6 % (21.0-51.0); MEAN CORPUSCULAR HEMOGLOBIN 27.9 pg (27.0-33.0); MEAN CORPUSCULAR VOLUME 82.2 fL (79-99); MONOCYTES # (AUTO) 0.7 K/uL (0.1-1.0); MONOCYTES % (AUTO) 9.3 % (3.0-13.0); NEUTROPHILS # (AUTO) 4.4 K/uL (1.8-7.7); NEUTROPHILS % (AUTO) 58.9 % (40.0-77.0); PLATELET COUNT (AUTO) 310 K/uL (130-400); RED BLOOD CELL COUNT(AUTO) 4.33 MIL/uL (4.00-5.50); RED CELL DISTRIBUTION WIDTH 14.3 % (11.0-15.5); WHITE BLOOD COUNT (AUTO) 7.5 K/uL (4.8-10.8)
[2023-12-24 23:02] LABS: CREATININE 0.7 mg/dL (0.5-1.0); POTASSIUM 3.5 mmol/L (3.5-5.1)
[2023-12-25 00:47] LABS: ADD UA MICROSCOPIC NO; APPEARANCE,URINE CLEAR (CLEAR); BILIRUBIN,URINE NEGATIVE (NEGATIVE); COLOR,URINE COLORLESS (YELLOW); GLUCOSE, URINE (UA) NEGATIVE (NEGATIVE); KETONES,URINE NEGATIVE (NEGATIVE); LEUKOCYTE ESTERASE ,URINE NEGATIVE Leu/uL (NEGATIVE); NITRATE,URINE NEGATIVE (NEGATIVE); OCCULT BLOOD,URINE NEGATIVE (NEGATIVE); PH,URINE 6.5 (5.0-8.0); PROTEIN,URINE NEGATIVE (NEGATIVE); UROBILINOGEN,URINE 0.2 mg/dL (0.2-1.0)
[2023-12-25 02:09] VITALS: BP 110/62; PULSE 73; RESP 18; TEMP 98; O2SAT 100
== END 2023-12-25 02:10 | disposition home or self-care (01) ==
LOC: EDH 21:31
DX: O98.511 Other viral diseases complicating pregnancy, first trimester (principal); U07.1 COVID-19; R10.2 Pelvic and perineal pain; O99.331 Smoking (tobacco) complicating pregnancy, first trimester; F17.200 Nicotine dependence, unspecified, uncomplicated; Z88.6 Allergy status to analgesic agent; Z91.040 Latex allergy status; Z88.8 Allergy status to other drugs, medicaments and biological substances; Z79.899 Other long term (current) drug therapy; Z98.890 Other specified postprocedural states; Z3A.01 Less than 8 weeks gestation of pregnancy
CPT/HCPCS: 36415; 76801; 80048; 81003; 84702; 85025; 87635; 87804; 87880

== ENCOUNTER 2024-10-25 14:50 | Emergency (ER) | payer MEDICAID ==
[~2024-10-25] VITALS: Ht 149.9 cm; Wt 77.1 kg
[2024-10-25 15:41] LABS: IMMATURE GRANULOCYTE ABSOLUTE 0.02 K/uL (0-1); NUCLEATED RED BLOOD CELLS 0.0 % (0.0-0.19); PLATELET COUNT (AUTO) 381 K/uL (130-400); RED BLOOD CELL COUNT(AUTO) 4.69 MIL/uL (4.00-5.50); RED CELL DISTRIBUTION WIDTH 16.4 % (11.0-15.5); WHITE BLOOD COUNT (AUTO) 7.6 K/uL (4.8-10.8)
[2024-10-25 15:55] LABS: CREATININE 0.6 mg/dL (0.5-1.0); GLOMERULAR FILTR. RATE CALC 126.0 mL/min (>90); GLUCOSE,RANDOM 89.0 mg/dL (70-105); SODIUM SERUM 143.0 mmol/L (136-145); UREA NITROGEN, BLOOD 14.0 mg/dL (7-18)
[2024-10-25] MEDS: 0.9%NACL 1000ML 1,000 ML IV STA (16:04)
[2024-10-25 16:06] LABS: HCG,QUANTITATIVE 0.0 mIU/mL (0-5)
[2024-10-25 16:07] LABS: APPEARANCE,URINE CLEAR (CLEAR); GLUCOSE, URINE (UA) NEGATIVE (NEGATIVE); LEUKOCYTE ESTERASE ,URINE NEGATIVE Leu/uL (NEGATIVE); NITRATE,URINE NEGATIVE (NEGATIVE); OCCULT BLOOD,URINE NEGATIVE (NEGATIVE)
[2024-10-25 16:09] LABS: ADD UA MICROSCOPIC YES; SQUAMOUS EPITHELIAL CELL,UR FEW /HPF (0-2)
[2024-10-25] MEDS ORDERED: IOHEXOL-350 50ML VIAL IV ONE (16:11)
--- NOTE | 2024-10-25 16:36 | HMCIMG ---
EXAM: CT Abdomen and Pelvis Without IV contrast CLINICAL HISTORY: LLQ PAIN TECHNIQUE: Axial computed tomography images of the abdomen and pelvis without intravenous contrast. CONTRAST: No IV contrast. COMPARISON: None provided. FINDINGS: LUNG BASES: The lung bases appear clear. No pleural effusions are seen. LIVER: Unremarkable. GALLBLADDER AND BILE DUCTS: The gallbladder appears within normal limits. No radioopaque gallstones are seen. No biliary ductal dilatation is evident. PANCREAS: Unremarkable. SPLEEN: Unremarkable. ADRENAL GLANDS: Unremarkable. KIDNEYS, URETERS, AND BLADDER: The kidneys appear within normal limits. There is no hydronephrosis or hydroureter. No urinary calculi are seen. STOMACH AND BOWEL: Unremarkable appearance of the stomach and bowel. No evidence of bowel obstruction. No evidence suggesting enteritis or colitis. APPENDIX: Normal appendix. PERITONEUM: No free fluid. No free air. LYMPH NODES: No lymphadenopathy is evident. REPRODUCTIVE: Unremarkable as visualized. Intrauterine device in place. VASCULATURE: No evidence of abdominal aortic aneurysm. BONES: No aggressive appearing osseous lesion. No acute osseous pathology evident. IMPRESSION: No acute intra-abdominal or pelvic abnormality. /[place]
[2024-10-25] MEDS ORDERED: PHEN26CR2 TP (16:52)
--- NOTE | 2024-10-25 16:53 | ERN ---
ED Note History of Present Illness Stated Complaint: BRIGHT RED BLOODY STOOLS Chief Complaint: Bloody Stool Time Seen by MD: 14:56 Time Seen by Midlevel: 15:00 Dictation: 29-year-old female with no past medical history coming in with complaints of blood in stool and when she wipes. Patient states she has pain around her rectal area. Patient is requesting a CT scan states she was diagnosed with polyps" in the past. Allergies: Coded Allergies: ibuprofen (Unverified Allergy, Unknown, 02/01/22) latex (Unverified Allergy, Unknown, 08/17/23) naproxen (Unverified Allergy, Unknown, 02/01/22) sertraline (Unverified Allergy, Unknown, 04/07/23) Home Meds Active Scripts Diphenhydramine HCl (Benadryl) 50 Mg Cap, 50 MG PO Q6H for itching/rash, #20 CAP 0 Refills Prov:EARL FAIRBANKS NP 12/08/23 Pantoprazole Sodium (Protonix) 40 Mg Ectab, 40 MG PO DAILY for 30 Days, #30 TAB.EC Prov:CHU RICE MD 09/22/23 Doxycycline Hyclate (Doxycycline Hyclate) 100 Mg Tablet.dr, 100 MG PO BID, #20 TAB Prov:KAILEE DAVIES MD 08/16/23 Sertraline HCl (Zoloft) 100 Mg Tablet, 100 MG PO DAILY, #30 TAB Prov:KAILEE DAVIES MD 10/12/22 Cetirizine HCl/Pseudoephedrine (Zyrtec-D Tablet) 1 Each Tab.er.12h, 1 EACH PO BID, #20 TAB 0 Refills Prov:BG HESTER MD 03/10/22 Past Medical History Past Medical History: Anxiety, Depression, Other Additional Past Medical Hx: HX OF GASTRITIS Surgical History: Other Surgical History Other: ORAL Family History: HTN Social History: Smokers, Lives with family, Other History: Not Applicable LMP: Oct 19, 2024 : 2 Para: 2 Review of System Dictation Constitutional: Negative for fever,chills, and weight loss Eyes: Negative for injury, pain,redness, and discharge ENT: Negative for injury,pain or swelling Cardiovascular: Negative for chest pain, palpitations, and edema Respiratory: Negative for shortness of breath, cough, and wheezing, Abdomen/GI: Negative for abdominal pain, nausea, vomiting, diarrhea, and constipation, stating she has a blood in stool Back: Negative for injury and pain : Negative for injury, bleeding and discharge MS/Extremity: Negative for injury and deformity Skin: Negative for rash, and discoloration Neuro: Negative for headache, weakness, numbness, tingling, and seizure Psych: Negative for suicide ideation, homicidal ideation, and hallucinations Review of Systems: was completed Initial Vital Sign VS Vital Signs Date Time Temp Pulse Resp B/P (MAP) Pulse Ox O2 Delivery O2 Flow Rate FiO2 10/25/24 14:52 97.9 109 20 144/88 100 Room Air 0 10/25/24 15:05 21 Physical Exam Dictation General: awake, alert, NAD Head/Face: Normocephalic, atraumatic Eyes: PERRL, EOMI, vision at baseline ENT: oral cavity clear, TMs clear, no signs of infection Neck: Trachea midline, supple, no nuchal rigidity Cardiovascular: RRR, normal S1/S2, No MRGs, no JVD Respiratory: CTAB, no respiratory distress, No rales or wheezes Abdomen: Soft, non-tender, non-distended, normal bowel sounds, no guarding or rebound. Skin: Warm, dry, normal turgor, no rash MS/Extremity: Pulses equal, no cyanosis, neurovascular intact, FROM Neuro: COAx4, GCS 15, strength 5/5, CN 2-12 intact, normal cerebellar exam, normal gait, Psych: Normal behavior, mood, and affect normal, rectal exam done with a primary nurse at bedside. There are two hemorrhoids, nonthrombosed. No juliana blood. There is pain on palpation to the hemorrhoids. There is no redness, induration, or any evidence of infectious process or abscess around the anal area. Results (Laboratory/Radiology) Laboratory/Radiology Laboratory Tests Test 10/25/24 14:59 10/25/24 15:15 Urine Color LIGHT-YELLOW (YELLOW) Urine Appearance CLEAR (CLEAR) Urine pH 5.5 (5.0-8.0) Urine Specific [place] 1.015 (1.001-1.031) Urine Protein NEGATIVE mg/dL (NEGATIVE) Urine Glucose (UA) NEGATIVE mg/dL (NEGATIVE) Urine Ketones NEGATIVE mg/dL (NEGATIVE) Urine Occult Blood NEGATIVE (NEGATIVE) Urine Nitrate NEGATIVE (NEGATIVE) Urine Bilirubin NEGATIVE mg/dL (NEGATIVE) Urine Urobilinogen 0.2 mg/dL (0.2-1.0) Urine Leukocyte Esterase NEGATIVE [place]/uL Urine RBC 0-1 /HPF (0-1) Urine WBC 0-1 /HPF (0-1) Urine Squamous Epithelial Cells FEW /HPF (0-2) Urine Bacteria None /HPF (None Seen) White Blood Count 7.6 K/uL (4.8-10.8) Red Blood Count 4.69 MIL/uL (4.00-5.50) Hemoglobin 12.1 g/dL (12.0-16.0) Hematocrit 37.3 % (36-48) Mean Corpuscular Volume 79.5 fL (79-99) Mean Corpuscular Hemoglobin 25.8 pg (27.0-33.0) L Mean Corpuscular Hemoglobin Concent 32.4 g/dL (32.0-36.0) Red Cell Distribution Width 16.4 % (11.0-15.5) H Platelet Count 381 K/uL (130-400) Mean Platelet Volume 9.7 fL (7.5-10.5) Immature Granulocyte % (Auto) 0.3 % (0-1) Neutrophils (%) (Auto) 61.4 % (40.0-77.0) Lymphocytes (%) (Auto) 28.6 % (21.0-51.0) Monocytes (%) (Auto) 7.3 % (3.0-13.0) Eosinophils (%) (Auto) 2.0 % (0.0-8.0) Basophils (%) (Auto) 0.4 % (0.0-5.0) Neutrophils # (Auto) 4.7 K/uL (1.8-7.7) Lymphocytes # (Auto) 2.2 K/uL (1.0-4.8) Monocytes # (Auto) 0.6 K/uL (0.1-1.0) Eosinophils # (Auto) 0.15 K/uL (0.00-0.70) Basophils # (Auto) 0.03 K/uL (0.00-0.20) Absolute Immature Granulocyte (auto 0.02 K/uL (0-1) Nucleated Red Blood Cells 0.0 % (0.0-0.19) Sodium Level 143 mmol/L (136-145) Potassium Level 3.7 mmol/L (3.5-5.1) Chloride Level 103 mmol/L (101-111) Carbon Dioxide Level 28 mmol/L (21-32) Blood Urea Nitrogen 14 mg/dL (7-18) Creatinine 0.6 mg/dL (0.5-1.0) Glomerular Filtration Rate Calc 126 mL/min (>90) Random Glucose 89 mg/dL (70-105) Total Calcium 9.2 mg/dL (8.5-10.1) Human Chorionic Gonadotropin, Quant 0 mIU/mL (0-5) Labs Reviewed?: Yes ED Course ED Course Orders Procedure Category Date Status Time Cbc With Differential LAB 10/25/24 Complete 15:28 Basic Metabolic Panel LAB 10/25/24 Complete 15:28 Urinalysis Profile LAB 10/25/24 Complete 15:28 Hcg,Quantitative LAB 10/25/24 Complete 15:28 0.9%Nacl 1000ml (Ns PHA 10/25/24 In Process 1000ml) 15:28 Iohexol (Omnipaque) PHA 10/25/24 Complete 16:11 Ct Abdomen/Pelvis W/O CT 10/25/24 Resulted Contrast 16:09 Occult Blood Stool LAB 10/25/24 Logged Single Only 16:36 Current Medications Medications (Trade) Dose Ordered Sig/Trent Route PRN Reason Start Time Stop Time Status Last Admin Dose Admin Iohexol (Omnipaque) 50 ml STK-MED ONCE IV 10/25/24 16:11 10/25/24 16:11 DC Sodium Chloride 1,000 ml @ 100 mls/hr Q10H STAT IV 10/25/24 15:28 10/26/24 01:27 10/25/24 16:04 Vital Signs Date Time Temp Pulse Resp B/P (MAP) Pulse Ox O2 Delivery O2 Flow Rate FiO2 10/25/24 15:05 97.9 109 18 144/88 100 Room Air* 0 21 10/25/24 14:52 97.9 109 20 144/88 100 Room Air 0 Medical Decision Making MDM MDM: 29-year-old female with no past medical history coming in with complaints of blood in stool and when she wipes. Patient states she has pain around her rectal area. Patient is requesting a CT scan states she was diagnosed with polyps" in the past. Blood work unremarkable. CT scan is normal. Patient more than likely has a symptoms related to hemorrhoids. Patient showed me a picture on her phone where there is brown stool with red in the water most consistent with maybe bleeding through the hemorrhoid. Discussed with the patient that I will give her a prescription for a cream to reduce this has a hemorrhage to follow up outpatient. Patient verbalized understanding, answered all questions. Differential diagnosis: GI bleed, hemorrhoid Rationale: Tests considered and ordered secondary to shared decision making include: Previous outside records reviewed: Old ER visits. Risk of complication and/or morbidity or mortality of patient management: None Medications-Per medication reconciliation Need for hospitalization: Patient does not meet criteria for hospitalization. Need for emergency major/minor surgery: No There are no social concerns with this patient. Prescription drug management Prescriptions will include symptomatic care Patient's prior external medical records from other ER visits were reviewed by me as indicated. Prior testing and results from previous visits were reviewed. Prior tests were taken into account with medical decision making and resource utilization, independent historian/historians were used to obtain complete medical history. I independently interpreted the test that were performed, results were reviewed by me and considered findings on radiology if ordered. Medical management and examination interpretation discussions were had by me with other qualified healthcare professionals as indicated for the patient's care. DX & DISP Disposition: Discharge Departure Impression: Primary Impression: Hemorrhoid Condition: Stable Scripts Phenyleph/Pramoxin/Glycr/W.pet (Preparation H Cream) 0.25 %-1 % Cream..g. 1 APPL TP BID for 15 Days, #38 GM 0 Refills Prov: KACY CULVER NP 10/25/24 Additional Instructions: Apply cream as directed. You can also take stool softeners to help alleviate some of the discomfort. Follow up with your PCP. Referrals: ALISA DOTSON MD (PCP) Time of Disposition: 16:51 I have reviewed the case, and I agree with, Diagnosis and Plan KACY CULVER NP Oct 25, 2024 16:52
[2024-10-25 17:06] VITALS: BP 98/60; PULSE 75; RESP 18; TEMP 97.9; O2SAT 99
== END 2024-10-25 17:29 | disposition home or self-care (01) ==
LOC: EDH 14:50
DX: K64.9 Unspecified hemorrhoids (principal); F41.9 Anxiety disorder, unspecified; F32.A Depression, unspecified; F17.200 Nicotine dependence, unspecified, uncomplicated; R10.2 Pelvic and perineal pain; Z79.899 Other long term (current) drug therapy; Z88.6 Allergy status to analgesic agent
CPT/HCPCS: 99284; 74176; 80048; 84702; 85025; 81001; 36415; J7030; Q9967

== ENCOUNTER 2025-02-23 08:59 | Emergency (ER) | payer MEDICAID ==
[~2025-02-23] VITALS: Ht 149.9 cm; Wt 68.0 kg
[~2025-02-23 08:59] MED LIST changes: -DIPH50 PO; +DIPH50CA38 PO; +PHEN26CR2 TP
[2025-02-23 09:01] VITALS: BP 106/69; PULSE 86; RESP 18; TEMP 97.4
[2025-02-23] MEDS: TETRACAINE HCL 0.5% 4 ML OPHTH SOLN ONE (09:19)
[2025-02-23] MEDS ORDERED: ERYT1OIN7 OP (09:37)
--- NOTE | 2025-02-23 09:38 | ERN ---
General Chief Complaint: Eye Problems Stated Complaint: RT EYE PPAIN Time Seen by MD: 09:12 Source: patient History of Present Illness Initial Comments Patient Is a 29-year-old female coming in complaining of right eye discomfort. Patient believes it might be an eyelash. Symptoms started a couple of days ago. Allergies: Coded Allergies: ibuprofen (Unverified Allergy, Unknown, 02/01/22) iodine (Unverified Allergy, Unknown, 02/23/25) latex (Unverified Allergy, Unknown, 08/17/23) naproxen (Unverified Allergy, Unknown, 02/01/22) sertraline (Unverified Allergy, Unknown, 04/07/23) shellfish derived (Unverified Allergy, Unknown, 02/23/25) Home Meds Active Scripts Phenyleph/Pramoxin/Glycr/W.pet (Preparation H Cream) 0.25 %-1 % Cream..g., 1 APPL TP BID for 15 Days, #38 GM 0 Refills Prov:KACY CULVER CNP 10/25/24 Diphenhydramine HCl (Benadryl) 50 Mg Cap, 50 MG PO Q6H for itching/rash, #20 CAP 0 Refills Prov:EARL FAIRBANKS MAINTENANCE PIPEFITTER 12/08/23 Pantoprazole Sodium (Protonix) 40 Mg Ectab, 40 MG PO DAILY for 30 Days, #30 TAB. EC Prov:CHU RICE MD 09/22/23 Doxycycline Hyclate (Doxycycline Hyclate) 100 Mg Tablet.dr, 100 MG PO BID, #20 TAB Prov:KAILEE DAVIES MD 08/16/23 Sertraline HCl (Zoloft) 100 Mg Tablet, 100 MG PO DAILY, #30 TAB Prov:KAILEE DAVIES MD 10/12/22 Cetirizine HCl/Pseudoephedrine (Zyrtec-D Tablet) 1 Each Tab.er.12h, 1 EACH PO BID, #20 TAB 0 Refills Prov:BG HESTER MD 03/10/22 Past Medical History Past Medical History: GERD Medical History Other: HX OF GASTRITIS Past Surgical History: BTL Surgical History Other: ORAL Family History Family History: HTN Social History Social History: Smokers, Lives with family, Other Female( History) History: Not Applicable LMP: Feb 22, 2025 : 6 Para: 3 Aborts: 3 ROS Dictation CONSTITUTIONAL: No chills, no fever, no weakness, no diaphoresis, no malaise. HEAD/FACE: No signs of trauma. EENT: eye pain, blurred vision, tearing, no double vision, no ear pain, no ear discharge, no nose pain, no nasal congestion, no throat pain, no throat swelling, no mouth pain. RESPIRATORY: No cough, no orthopnea, no SOB, no stridor, no wheezing. CARDIOVASCULAR: No chest pain, no edema, no palpitations, no syncope. GASTROINTESTINAL/ABDOMINAL: No abdominal pain, no constipation, no diarrhea, no nausea, no vomiting. GENITOURINARY: No abnormal discharge, no dysuria, no frequent urination, no hematuria. No complaints of pain in the genitals. MUSCULOSKELETAL: No back pain, no gout, no joint pain, no joint swelling, no muscle pain, no muscle stiffness, no neck pain. INTEGUMENTARY: No change in color, no change in hair/nails, no dryness, no lesion, no lumps, no rash. NEUROLOGICAL/PSYCH: No anxiety, not depressed, no emotional problem, no headache, no numbness, no pre-existing deficit, no history of seizures, no tr emors, no weakness. HEMATOLOGIC/LYMPHATIC: Not anemic, no history of blood clots, no apparent bleeding, no bruising, glands not swollen. All Systems Negative, Except as Noted. Physical Exam Physical Exam Dictation VITAL SIGNS: Reviewed. GENERAL APPEARANCE: Alert, oriented x3, no acute distress, obese. HEAD AND FACE: Non-traumatic. EYES: PERRL, pink conjunctivas, is a, eyelid inversion disclose a eyelash, eye abrasions, EARS: Pinnas intact and no signs of trauma or erythema. Ear canals clear and no discharge. TMs no erythema. NOSE: No discharge, no bleeding. OROPHARYNX: Mouth normal, teeth no caries, tongue pink. Pharynx clear, no erythema. Tonsils no exudates, no abscesses noted. Mucous membrane moist. NECK: Supple, non-tender, no thyromegaly, no masses, no JVD, no bruits. BREAST: Deferred. CHEST: No tenderness, no crepitus, no paradoxical movement, no retractions. LUNGS: Clear, well-ventilated, symmetric, no rales, no wheezing, no rhonchi, no stridor, good breath sounds bilaterally. HEART: Regular rate, regular rhythm, no murmur, no gallops. VASCULAR: No peripheral edema. ABDOMEN: Soft, positive bowel sounds, nondistended, no guarding, nontender, no rebound, no masses no hepatomegaly, no splenomegaly, no Shah's sign, no hernias. RECTAL: Deferred. GENITAL: Deferred. NEUROLOGICAL: Normal speech, gross motor function intact, gross sensory function intact. MUSCULOSKELETAL: Neck nontender, full range of motion, back nontender, full range of motion. EXTREMITIES: Nontender, full range of motion. SKIN: Color pink, dry, no turgor, no rash, no lacerations, no abrasions, no contusions. LYMPHATICS: Deferred. Results Laboratory and Microbiology Labs Reviewed?: Yes MDM MDM: Differential diagnosis: Foreign body to the eye, eyelash, eye abrasion, corneal abrasion, Rationale: Tests considered and ordered secondary to shared decision making include: Previous outside records reviewed: Old ER visits. Risk of complication and/or morbidity or mortality of patient management: None Medications-Per medication reconciliation Need for hospitalization: Patient does not meet criteria for hospitalization. Need for emergency major/minor surgery: No Patient is a 29-year-old female coming in complaining of right eye discomfort. Tetracaine was applied good anesthesia achieved, using Q-tips eyelid was inverted and an eyelash was removed. eye was washed patient tolerated procedure well we will be discharged with topical antibiotics. I did advised her appropriate follow up with PCP and/or executive marketing assistant for ongoing evaluation and management. ED Course Orders Procedure Category Date Status Time Tetracaine Hcl PHA 02/23/25 Complete (Pontocaine 0.5% 09:17 Current Medications Medications (Trade) Dose Ordered Sig/Trent Route PRN Reason Start Time Stop Time Status Last Admin Dose Admin Tetracaine HCl (Pontocaine 0.5% Ophth Soln) 20 drop STK-MED ONCE .ROUTE 02/23/25 09:17 02/23/25 09:17 DC 02/23/25 09:19 Vital Signs Date Time Temp Pulse Resp B/P (MAP) Pulse Ox O2 Delivery O2 Flow Rate FiO2 02/23/25 09:01 97.3 86 18 106/69 100 Room Air Eye Procedure Eye Procedure : Alcaine Drops Administered: Yes Eye FB Removal: removal w/ cotton swab Eye Irrigated w/ Saline (ccs): 100 DX & DISP Disposition: Discharge Departure Impression: Primary Impression: Eye foreign body Condition: Stable Scripts Erythromycin Base (Erythromycin) 5 Mg/Gram (0.5 %) Oint...g. 1 APPL OP QID, #1 GM 0 Refills apply 1 cm ribbon into the lower conjunctival sac Prov: CHU RICE MD 02/23/25 Additional Instructions: FOLLOW-UP WITH PRIMARY CARE PROVIDER IN 1 TO 2 DAYS. TAKE MEDICATIONS DIRECTED HERE IN THE EMERGENCY ROOM. OKAY TO CONTINUE HOME MEDICATIONS UNLESS OTHERWISE DISCUSSED DURING YOUR VISIT IN THE EMERGENCY ROOM TODAY. RETURN TO YOUR NEAREST EMERGENCY ROOM IF SYMPTOMS WORSEN OR IF THERE IS NO IMPROVEMENT. CALL 911 IF YOU NEED IMMEDIATE ASSISTANCE. TAKE TYLENOL [id number] NEEDED AND IF NO CONTRAINDICATIONS ARE PRESENT. INCREASE ORAL HYDRATION. A WOUND CULTURE OR URINE CULTURE WAS ORDERED HERE IN THE EMERGENCY ROOM DEPARTMENT PLEASE FOLLOW-UP WITH PRIMARY CARE PROVIDER AND ADVISE THEM TO GET REPORTS FROM OUR FACILITY. IF YOU HAD ANY FRIDA WRAP/SPLINTS THAT WERE APPLIED HERE, PLEASE DO NOT REMOVE THEM UNTIL YOU SEE YOUR PRIMARY CARE OR SPECIALTY. Referrals: Referrals: ALISA DOTSON MD (PCP) Time of Disposition: 09:37 CHU RICE MD Feb 23, 2025 09:38
== END 2025-02-23 09:48 | disposition home or self-care (01) ==
LOC: EDH 08:59
DX: T15.91XA Foreign body on external eye, part unspecified, right eye, initial encounter (principal); F17.200 Nicotine dependence, unspecified, uncomplicated; Z79.899 Other long term (current) drug therapy; Z87.19 Personal history of other diseases of the digestive system; Z88.6 Allergy status to analgesic agent; Z88.8 Allergy status to other drugs, medicaments and biological substances; Z91.041 Radiographic dye allergy status; Z91.040 Latex allergy status; Z91.013 Allergy to seafood; W44.8XXA Other foreign body entering into or through a natural orifice, initial encounter; Y93.89 Activity, other specified; Y92.89 Other specified places as the place of occurrence of the external cause; Y99.8 Other external cause status
CPT/HCPCS: 99284

== ENCOUNTER 2025-04-06 11:20 | Emergency (ER) | payer MEDICAID ==
[~2025-04-06] VITALS: Ht 149.9 cm; Wt 68.0 kg
[~2025-04-06 11:20] MED LIST changes: +ERYT1OIN7 OP
[2025-04-06 12:02] LABS: APPEARANCE,URINE CLEAR (CLEAR); GLUCOSE, URINE (UA) NEGATIVE (NEGATIVE); LEUKOCYTE ESTERASE ,URINE NEGATIVE Leu/uL (NEGATIVE); NITRATE,URINE NEGATIVE (NEGATIVE); OCCULT BLOOD,URINE NEGATIVE (NEGATIVE)
[2025-04-06 12:06] LABS: ADD UA MICROSCOPIC YES
[2025-04-06 12:08] LABS: OTHER CASTS, URINE 1 /LPF (None Seen); SQUAMOUS EPITHELIAL CELL,UR FEW /HPF (0-2)
[2025-04-06 12:51] VITALS: BP 117/64; PULSE 84; RESP 20; TEMP 98.1; O2SAT 97
--- NOTE | 2025-04-06 13:13 | ERN ---
ED Note History of Present Illness Stated Complaint: POSSIBLE STD Chief Complaint: Sexually Transmitted Disease Time Seen by MD: 11:29 Time Seen by Midlevel: 11:36 Dictation: 30-year-old female coming in with concerns of STD exposure on 03/27. Patient states she has been doing sensation in the urinating and throat pain. Patient states he has possibly gonorrhea chlamydia. Patient states she has a history of gastritis, prediabetic and has a ready carrier for a baby one and two. Allergies: Coded Allergies: ibuprofen (Unverified Allergy, Unknown, 02/01/22) iodine (Unverified Allergy, Unknown, 02/23/25) latex (Unverified Allergy, Unknown, 08/17/23) naproxen (Unverified Allergy, Unknown, 02/01/22) pork derived (porcine) (Unverified Allergy, Unknown, 04/06/25) sertraline (Unverified Allergy, Unknown, 04/07/23) shellfish derived (Unverified Allergy, Unknown, 02/23/25) Home Meds Active Scripts Erythromycin Base (Erythromycin) 5 Mg/Gram (0.5 %) Oint...g., 1 APPL OP QID, #1 GM 0 Refills apply 1 cm ribbon into the lower conjunctival sac Prov:CHU RICE MD 02/23/25 Phenyleph/Pramoxin/Glycr/W.pet (Preparation H Cream) 0.25 %-1 % Cream..g., 1 APPL TP BID for 15 Days, #38 GM 0 Refills Prov:KACY CULVER [employer] 10/25/24 Diphenhydramine HCl (Benadryl) 50 Mg Cap, 50 MG PO Q6H for itching/rash, #20 CAP 0 Refills Prov:EARL FAIRBANKS [employer] 12/08/23 Pantoprazole Sodium (Protonix) 40 Mg Ectab, 40 MG PO DAILY for 30 Days, #30 TAB.EC Prov:CHU RICE MD 09/22/23 Doxycycline Hyclate (Doxycycline Hyclate) 100 Mg Tablet.dr, 100 MG PO BID, #20 TAB Prov:KAILEE DAVIES MD 08/16/23 Sertraline HCl (Zoloft) 100 Mg Tablet, 100 MG PO DAILY, #30 TAB Prov:KAILEE DAVIES MD 10/12/22 Cetirizine HCl/Pseudoephedrine (Zyrtec-D Tablet) 1 Each Tab.er.12h, 1 EACH PO BID, #20 TAB 0 Refills Prov:BG HESTER MD 03/10/22 Past Medical History Past Medical History: GERD Additional Past Medical Hx: HX OF GASTRITIS Surgical History: BTL Surgical History Other: ORAL Family History: HTN Social History: Smokers, Lives with family, Other History: Not Applicable : 6 Para: 3 Aborts: 3 Review of System Dictation Constitutional: Negative for fever,chills, and weight loss Eyes: Negative for injury, pain,redness, and discharge ENT: Negative for injury,pain or swelling Cardiovascular: Negative for chest pain, palpitations, and edema Respiratory: Negative for shortness of breath, cough, and wheezing, Abdomen/GI: Negative for abdominal pain, nausea, vomiting, diarrhea, and constipation Back: Negative for injury and pain : Dysuria MS/Extremity: Negative for injury and deformity Skin: Negative for rash, and discoloration Neuro: Negative for headache, weakness, numbness, tingling, and seizure Psych: Negative for suicide ideation, homicidal ideation, and hallucinations Review of Systems: was completed Initial Vital Sign VS Vital Signs Date Time Temp Pulse Resp B/P (MAP) Pulse Ox O2 Delivery O2 Flow Rate FiO2 04/06/25 11:21 98.1 85 16 114/67 98 Room Air Physical Exam Dictation General: awake, alert, NAD Head/Face: Normocephalic, atraumatic Eyes: PERRL, EOMI, vision at baseline ENT: oral cavity clear, TMs clear, no signs of infection Neck: Trachea midline, supple, no nuchal rigidity Cardiovascular: RRR, normal S1/S2, No MRGs, no JVD Respiratory: CTAB, no respiratory distress, No rales or wheezes Abdomen: Soft, non-tender, non-distended, normal bowel sounds, no guarding or rebound. Skin: Warm, dry, normal turgor, no rash MS/Extremity: Pulses equal, no cyanosis, neurovascular intact, FROM Neuro: COAx4, GCS 15, strength 5/5, CN 2-12 intact, normal cerebellar exam, normal gait, Psych: Normal behavior, mood, and affect normal Results (Laboratory/Radiology) Laboratory/Radiology Laboratory Tests Test 04/06/25 11:48 12/17/25 12:08 Urine Color LIGHT-YELLOW (YELLOW) Urine Appearance CLEAR (CLEAR) Urine pH 5.0 (5.0-8.0) Urine Specific Matthews 1.035 (1.001-1.031) Urine Protein 10 mg/dL (NEGATIVE) H Urine Glucose (UA) NEGATIVE mg/dL (NEGATIVE) Urine Ketones NEGATIVE mg/dL (NEGATIVE) Urine Occult Blood NEGATIVE (NEGATIVE) Urine Nitrate NEGATIVE (NEGATIVE) Urine Bilirubin NEGATIVE mg/dL (NEGATIVE) Urine Urobilinogen 0.2 mg/dL (0.2-1.0) Urine Leukocyte Esterase NEGATIVE Perla/uL Urine RBC 0-1 /HPF (0-1) Urine WBC 2-5 /HPF (0-1) H Urine Squamous Epithelial Cells FEW /HPF (0-2) Urine Bacteria RARE /HPF (None Seen) Urine Other Casts 1 /LPF (None Seen) Serum Test, Qualitative NEGATIVE (NEGATIVE) ED Course ED Course Orders Procedure Category Date Status Time Urinalysis Profile LAB 04/06/25 Complete 11:36 Testing, LAB 04/06/25 Complete Serum Hcg 11:36 Chlamydia & Gc Pcr HERMELINDO 04/06/25 In Process 11:36 Ceftriaxone 1g Vial PHA 04/06/25 Complete (Rocephine 1g Inj) 12:32 Azithromycin PHA 04/06/25 Complete (Zithromax) 13:00 Current Medications Medications (Trade) Dose Ordered Sig/Trent Route PRN Reason Start Time Stop Time Status Last Admin Dose Admin Azithromycin (Zithromax) 1,000 mg ONCE ONCE PO 04/06/25 13:00 04/06/25 13:03 DC Ceftriaxone Sodium (ROCEphine 1G INJ) 1 gm ONCE STAT IM 04/06/25 12:32 04/06/25 12:35 DC Vital Signs Date Time Temp Pulse Resp B/P (MAP) Pulse Ox O2 Delivery O2 Flow Rate FiO2 04/06/25 11:21 98.1 85 16 114/67 98 Room Air Medical Decision Making MDM MDM: 30-year-old female coming in with concerns of STD exposure on 03/27. Patient states she has been doing sensation in the urinating and throat pain. Patient states he has possibly gonorrhea chlamydia. Patient states she has a history of gastritis, prediabetic and has a ready carrier for a baby one and two. Patient does not have a urinary tract infection in his not . Patient received prophylactic STD treatment in the emergency room. Discussed with the patient that the gonorrhea and chlamydia is not a stat results and we will be called if they are positive. Educated to follow up with PCP in 1-2 days return to the hospital as needed. Patient verbalized understanding, answered all questions. Differential diagnosis: UTI, , STD Rationale: Tests considered and ordered secondary to shared decision making include: Previous outside records reviewed: Old ER visits. Risk of complication and/or morbidity or mortality of patient management: None Medications-Per medication reconciliation Need for hospitalization: Patient does not meet criteria for hospitalization. Need for emergency major/minor surgery: No There are no social concerns with this patient. Prescription drug management Prescriptions will include symptomatic care Patient's prior external medical records from other ER visits were reviewed by me as indicated. Prior testing and results from previous visits were reviewed. Prior tests were taken into account with medical decision making and resource utilization, independent historian/historians were used to obtain complete m edical history. I independently interpreted the test that were performed, results were reviewed by me and considered findings on radiology if ordered. Medical management and examination interpretation discussions were had by me with other qualified healthcare professionals as indicated for the patient's care. DX & DISP Disposition: Discharge Departure Impression: Primary Impression: STD exposure Condition: Stable Additional Instructions: Follow up with the primary care provider. Return to the hospital as needed. Referrals: SELF,REFERRAL (PCP) Time of Disposition: 13:12 I have reviewed the case, and I agree with, Diagnosis and Plan KACY CULVER [facility] Apr 06, 2025 13:13
[2025-04-06] MEDS: AZITHROMYCIN 250 MG TABLET PO ONE (13:17)
== END 2025-04-06 13:27 | disposition home or self-care (01) ==
LOC: EDH 11:20
DX: Z20.2 Contact with and (suspected) exposure to infections with a predominantly sexual mode of transmission (principal); R30.9 Painful micturition, unspecified; R07.0 Pain in throat; K21.9 Gastro-esophageal reflux disease without esophagitis; F17.200 Nicotine dependence, unspecified, uncomplicated; Z88.8 Allergy status to other drugs, medicaments and biological substances; Z88.6 Allergy status to analgesic agent; Z91.040 Latex allergy status; Z91.013 Allergy to seafood; Z79.899 Other long term (current) drug therapy; Z87.19 Personal history of other diseases of the digestive system
CPT/HCPCS: 99283; 84703; 87491; 87591; 81001; 36415; 96372; J0696